=== PATIENT | female | born 1935 | race Hispanic/Latino ===

== ENCOUNTER 2019-11-14 17:39 | Emergency (ER) | payer OTHER ==
[~2019-11-14] VITALS: Ht 147.3 cm; Wt 40.8 kg
[2019-11-14] MEDS ORDERED: LISINOPRIL10 MG PO (17:51)
== END 2019-11-14 18:25 | disposition home or self-care (01) ==
LOC: ED 17:39
DX: S16.1XXA Strain of muscle, fascia and tendon at neck level, initial encounter (principal); I10 Essential (primary) hypertension; F17.200 Nicotine dependence, unspecified, uncomplicated; Z88.5 Allergy status to narcotic agent; Z79.899 Other long term (current) drug therapy; X58.XXXA Exposure to other specified factors, initial encounter
CPT/HCPCS: 99283